=== PATIENT | female | born 1935 | race Caucasian/White ===

== ENCOUNTER 2016-10-18 08:21 | Inpatient (IN) | payer OTHER, MEDICARE ==
[~2016-10-18] VITALS: Ht 165.1 cm; Wt 53.0 kg
[2016-10-18] VITALS (33 sets, daily range): BP systolic 86–158; BP diastolic 35–100
--- NOTE | ~2016-10-18 | EKG ---
[place] [address] [facility] [place] [address] ELECTROCARDIOGRAM REPORT Name: KRISTINE PACK Room #: 243-P ADM IN M.R.#: [id number] Admission: 10/18/16 Attend Phys: Chaz Sharp MD Discharge: Date of : 37 Report #: [id number] THIS REPORT FOR: //name// [facility] ED Test Date: 2016-10-18 Test Time: 08:51:29 Pat Name: KRISTINE PACK Department: Room: [facility] Gender: F Gore Maker: SNEHAL : 1935 Requested By: Varun Hernández Order Number: [id number] MD: Kevin Lanza Measurements Intervals [place] Rate: 97 P: 55 TX: 164 QRS: 30 QRSD: 92 T: 69 QT: 365 QTc: 464 Interpretive Statements Sinus rhythm Poor septal R-wave progression Compared to ECG 11/01/2004 16:24:38 No significant change was found Electronically Signed On 10-19-2016 8:49:24 CDT by Kevin Lanza [email or web address] <ELECTRONICALLY SIGNED> By: Kevin Lanza MD, [facility] 10/19/16 0849 0 Kevin Lanza MD, [facility] /EPI
--- NOTE | ~2016-10-18 | EKG ---
[place] [address] [facility] [place] [address] ELECTROCARDIOGRAM REPORT Name: KRISTINE PACK Room #: 243- ADM IN M.R.#: [id number] Admission: 10/18/16 Attend Phys: Chaz Sharp MD Discharge: Date of : 37 Report #: [id number] THIS REPORT FOR: //name// [facility] Test Date: 2016-10-20 Test Time: 08:12:31 Pat Name: KRISTINE PACK Department: Room: 243 P Gender: F Window Repairer: RHONDA : 1935 Requested By: Kevin Lanza Order Number: [id number] MD: Martinez Nguyen Measurements Intervals [place] Rate: 66 P: 58 NV: 130 QRS: 32 QRSD: 92 T: 186 QT: 509 QTc: 534 Interpretive Statements Sinus rhythm Abnormal T, consider ischemia, diffuse leads Prolonged QT interval Compared to ECG 10/18/2016 08:51:29 T-wave abnormality now present Possible ischemia now present Prolonged QT interval now present Electronically Signed On 10-20-2016 12:45:52 CDT by Martinez Nguyen [email or web address] <ELECTRONICALLY SIGNED> By: Martinez Nguyen MD 10/20/16 1245 1 1 Martinez Nguyen MD /EPI
--- NOTE | ~2016-10-18 | EKG ---
[place] [address] [facility] [place] [address] ELECTROCARDIOGRAM REPORT Name: KRISTINE PACK Room #: 241-P ADM IN M.R.#: [id number] Admission: 10/18/16 Attend Phys: Chaz Sharp MD Discharge: Date of : 37 Report #: [id number] THIS REPORT FOR: //name// [facility] Test Date: 2016-10-23 Test Time: 06:49:28 Pat Name: KRISTINE PACK Department: Room: 241 P Gender: F Entertainment Reporter: nora : 1935 Requested By: Kevin Lanza Order Number: [id number] MD: Kevin Lanza Measurements Intervals [place] Rate: 59 P: 53 PA: 127 QRS: 0 QRSD: 88 T: 206 QT: 510 QTc: 506 Interpretive Statements Sinus rhythm Atrial premature complex T wave abnormality, consider ischemia Prolonged QT interval Compared to ECG 10/22/2016 10:36:10 No significant change was found Electronically Signed On 10-23-2016 8:33:59 CDT by Kevin Lanza [email or web address] <ELECTRONICALLY SIGNED> By: Kevin Lanza MD, [facility] 10/23/16 0833 0649 0649 Kevin Lanza MD, [facility] /EPI
--- NOTE | ~2016-10-18 | EKG ---
[place] [address] [facility] [place] [address] ELECTROCARDIOGRAM REPORT Name: KRISTINE PACK Room #: 243-P ADM IN M.R.#: [id number] Admission: 10/18/16 Attend Phys: Chaz Sharp MD Discharge: Date of : 37 Report #: [id number] THIS REPORT FOR: //name// [facility] ED Test Date: 2016-10-18 Test Time: 08:29:00 Pat Name: KRISTINE PACK Department: Room: [facility] Gender: F Manager Consumer Insights: SNEHAL : 1935 Requested By: Varun Hernández Order Number: [id number] MD: Kevin Lanza Measurements Intervals [place] Rate: 107 P: 81 AR: 163 QRS: 38 QRSD: 85 T: 56 QT: 325 QTc: 434 Interpretive Statements Sinus tachycardia Poor septal R-wave progression Compared to ECG 11/01/2004 16:24:38 No significant change was found Electronically Signed On 10-19-2016 8:48:46 CDT by Kevin Lanza [email or web address] <ELECTRONICALLY SIGNED> By: Kevin Lanza MD, [facility] 10/19/1648 8 8 Kevin Lanza MD, [facility] /EPI
--- NOTE | ~2016-10-18 | HC ---
[facility] [place] [address] CONSULTATION Name: KRISTINE PACK Room #: 213-P [facility] IN M.R.#: [id number] Admission: 10/18/16 Attend Phys: Chaz Sharp MD Discharge: 10/24/16 Date of : 37 Report #: [id number] THIS REPORT FOR: //name// CC: Chaz Sheikh DATE OF SERVICE: 10/23/2016 HISTORY OF PRESENT ILLNESS: The patient is an 81-year-old female who was undergoing some therapy at an outside facility, was ambulating and became obtunded. She was admitted to [facility]. There was a question of ST elevation. CT of the head was negative for hemorrhage and she was given TPA. Diagnosis at that time was consistent with acute encephalopathy, stroke versus hypoxia. She was noted to have hypercapnic respiratory failure. MRI of the head was negative. She underwent a cardiac echo which was consistent with takotsubo cardiomyopathy with cardiac junction. She had acute renal insufficiency versus chronic kidney disease with CHF. She initially did better, was starting to progress and then had a relapse with worsening with rapid response on 10/22/2016 requiring readmission back to the ICU. She was in the ICU for approximately 24 hours only and has now been transferred to the progressive care unit. I am seeing her in rehabilitation medicine consultation. PAST MEDICAL HISTORY: Includes chronic kidney disease stage 3, hypertension, end-stage renal disease, hyperlipidemia, thyroid atrophy, restless legs syndrome, and anxiety. HABITS: No known history of any alcohol or tobacco abuse. ALLERGIES: ERYTHROMYCIN, PENICILLIN, SERTRALINE, AND SULFA. SOCIAL HISTORY: She lives in her own independent home one level, used walker premorbidly. Just prior to her acute hospitalization, [facility] and was using a walker, improving. She notes she was needing to utilize the walker at times for some balance issues. As far as stress, she notes that she has had considerable stress in her life as was discussed. REVIEW OF SYSTEMS: Did not offer any current complaints of chest pain, shortness of breath, or abdominal discomfort. No focal extremity pain complaints. PHYSICAL EXAMINATION: GENERAL: An 81-year-old white female in no obvious distress. She is short statured and thin. She is alert. She is pleasant. VITAL SIGNS: Last recorded temperature 97.2, pulse 77, respirations 16, blood pressure 108/58. [address] [address] CONSULTATION Name: KRISTINE PACK Room #: 213-P DIS IN M.R.#: [id number] Admission: 10/18/16 Attend Phys: Chaz Sharp MD Discharge: 10/24/16 Date of : 36 Report #: [id number] HEENT: Appeared to be benign. NEUROLOGIC: Cranial nerves are grossly intact. Facies are symmetric. EXTREMITIES: She has functional range of motion of both upper extremities without obvious focal weakness. DTRs are trace to 1. In her lower extremities, there is no focal calf swelling, functional range of motion with strength grade 4-/5. She has been minimum assist with sit to supine and has ambulated minimum assist with a front-wheeled walker but that was before she was transferred back to the Intensive Care Unit. ASSESSMENT: An 81-year-old white female with the following problem list: 1. Medical complexity with generalized debilitation. 2. Non-ST elevation myocardial infarction with takotsubo cardiomyopathy. 3. Cardiogenic shock. 4. Acute hypoxic and hypercapnic respiratory failure, which has improved. 5. Acute encephalopathy and syncope due to arrhythmia, which has resolved. 6. Acute renal insufficiency superimposed on chronic kidney disease, which is improving. PLAN: Therapies are to complete their reevaluation after the readmission to the Intensive Care Unit. She may be a candidate for a short acute in-hospital inpatient rehabilitation stay pending on her functional deficits. She does have the multiple medical comorbidities with the multiple customer experience consultant involvement. We will be glad to follow along with you regarding her rehab therapy needs. <ELECTRONICALLY SIGNED> By: Stefano Wagner MD 10/25/16 1608 1623 0521 Stefano Wagner MD /nt
--- NOTE | ~2016-10-18 | HC ---
[facility] [place] [address] CONSULTATION Name: KRISTINE PACK Room #: 241-P ADM IN M.R.#: [id number] Admission: 10/18/16 Attend Phys: Chaz Sharp MD Discharge: Date of : 36 Report #: [id number] THIS REPORT FOR: //name// CC: Chaz Sheikh REASON FOR CONSULTATION: I was asked to evaluate concerning respiratory failure and suspected healthcare-associated pneumonia. HISTORY OF PRESENT ILLNESS: The patient is an 81-year-old who was at acute rehabilitation facility where she had development of generalized weakness and episode of loss of consciousness. She presented through the Emergency Room where she had ST elevation on her first electrocardiogram. Her oxygen saturation was low. There was concern regarding possible intracranial injury and TPA was administered. Subsequently, she has awoken and is fully responsive. She is intubated. Minimal tracheal secretions. On an FIO2 of 40%. Her initial ABG showed a lactic acidosis. Chest x-ray showed evidence of bilateral pulmonary infiltrates. Blood pressure has been stable. She is now on FIO2 of 40% and receiving normal saline drip at 100 mm an hour. The patient was alert and cooperative. She moved all extremities. No gross aspiration was identified. She has had loose stools. She reports no abdominal pain or dysuria. Now has indwelling Ochoa catheter. Urine output over the last 3-4 hours has picked up. ALLERGIES: PENICILLIN, SULFA, ERYTHROMYCIN, SERTRALINE. MEDICATIONS: As noted on her APR. Vancomycin, Levaquin and meropenem. PAST MEDICAL HISTORY: Chronic kidney disease, hypertension, iron deficiency anemia, hyperlipidemia, hypothyroid, restless leg syndrome, anxiety. FAMILY HISTORY: Noncontributory. SOCIAL HISTORY: Nonsmoker, no significant alcohol intake. REVIEW OF SYSTEMS: Negative other than what is noted above. PHYSICAL EXAMINATION: VITAL SIGNS: Afebrile and hemodynamically stable. The patient was alert and cooperative. She is on FIO2 of 40%. Minimal tracheal secretions. HEENT: Unremarkable. CHEST: Clear anteriorly. HEART: Regular was regular with a 2/6 systolic murmur heard at left sternal border. ABDOMEN: Soft, nontender, no hepatosplenomegaly or mass appreciated. EXTREMITIES: Unremarkable. No focal neurologic changes identified. [address] [address] CONSULTATION Name: KRISTINE PACK Room #: 241-P [facility] IN .R.#: [id number] Admission: 10/18/16 Attend Phys: Chaz Sharp MD Discharge: Date of : 37 Report #: [id number] LABORATORY STUDIES: Sodium 143, potassium 3.7, bicarbonate 27 up from 20 on admission. Creatinine 1.7. Liver function tests normal. Lactate 8, early this morning, troponin 4.3. BNP 3239. INR 1.0, hemoglobin 12, WBC 11.8, platelet count 352,000. MRSA screen pending. Differential was not performed. Procalcitonin less than 0.05. Urinalysis unremarkable. Last ABG at 10:00 this morning on FIO2 of 80% showed a pO2 of 127, pCO2 of 57, pH 7.2. Blood cultures are pending. Sputum culture pending. CT scan of the head, cerebral atrophy with no acute process. MRI scan of the head is pending. Chest x-ray, moderate right perihilar infiltrate, patchy moderate infiltrates aspect of left upper lobe and left lung base. IMPRESSION: An 81-year-old with syncopal episode , now with no focal neurologic changes. She is status post tissue plasminogen activator. She has bilateral pulmonary infiltrates, most notable on the left. Hemodynamics remained stable. Troponin has been elevated, noting some cardiac ischemia. Echocardiogram shows poor EF at 25-30% with akinesis of the septum, mid to distal anterior wall apex and inferior apex with mild to moderate mitral regurgitation. I am suspecting a component of this is related to congestive heart failure. Still cannot exclude aspiration healthcare-associated pneumonia. Although her procalcitonin was negative. I would recommend continuing antibiotic coverage for the next 24 hours and reevaluate with chest x-ray. We will reevaluate laboratory studies including CBC with differential. I have discussed the case with the nursing staff in attendance. <ELECTRONICALLY SIGNED> By: Phil Rod MD 10/22/16 1154 2107 0552 Phil Rod MD /nt
--- NOTE | ~2016-10-18 | CATHLAB ---
[facility] [place] [address] INVASIVE PROCEDURE REPORT Name: KRISTINE PACK Room #: 210-P [facility] IN ..#: [id number] Admission: 10/18/16 Attend Phys: Chaz Sharp, Discharge: Date of : 37 Date of Service: 10/22/16 0924 Report #: [id number] THIS REPORT FOR: //name// APPROVED REPORT Patient Details Patient Status: In-Patient Room #: The patient is a 81 year-old female Event Personnel Kevin Lanza Graphic Manager, Tanya Banegas Monitor, Sue Mckenzie Monitor, Susan Hoang RN RN, Stefano Ballesteros, Stefano Ballesteros, Gretel Oneal RTR Marker Delivery Procedures Performed Left Heart Cath w/or w/o Coronaries [id number] [facility] Indication Abnormal ECG Procedure Narrative The Right Groin^ was infiltrated with 1% Lidocaine subcutaneous anesthesia. A PINNACLE 6FR Sheath #[id number] sheath was inserted into the RFA^. Coronary angiography was performed using coronary diagnostic catheters. The right coronary system was accessed and visualized with a JR4 catheter. The left coronary system was accessed and visualized with a JL4 catheter. The left ventricle was accessed and visualized with a PIGTAIL catheter. Left ventricular/Aortic Valve gradient assessed via catheter pullback. Closure device was deployed with a 6 Fr MYNXGRIP 6/7F #[id number]. The patient tolerated the procedure well and there were no complications associated with the procedure. A hematoma occurred. Intraoperative Conscious Sedation Sedation start time: 8:08 Case end Time: 8:30 Fentanyl 25.0 mcg Versed 1.0 mg Fluoro Time: 3.00 minutes Dose: DAP 2651.00 cGycm2 315 mGy Contrast Type and Amount: Visipaque 145 ml Coronary Angiography The patient's coronary anatomy is right dominant. [facility] [place] [address] INVASIVE PROCEDURE REPORT Name: RAMONEKRISTINE Glendy Room #: 210-P [facility] IN ..#: [id number] Admission: 10/18/16 Attend Phys: Chaz Sharp, Discharge: Date of : 37 Date of Service: 10/22/16 0924 Report #: [id number] Diagnostic Cath Left Main Normal LAD Mild proximal 10% plaquing, otherwise normal throughout its course Diagonal 1 Single, normal diagonal branch Circumflex Angiographically normal OM1 Large, single trifurcating marginal branch Right Coronary Dominant Right coronary. Mild 20-30% mid vessel plaquing R PDA Normal RPLV Normal Left Ventriculography The left ventricle is normal in size with reduced contractility. The left ventricular ejection fraction is estimated to be 35%. Left ventricular wall motion abnormalities are present. There is 1+ mitral insufficiency. Apical ballooning, likely related to Takusubo cardiomyopathy. Anterior, apical, and inferoapical hypokinesis Hemodynamics The aortic pressure is 194/79 mmHg with a mean of 122 mmHg. The left ventricular pressure is 192/19 mmHg with a mean of mmHg. The left ventricular end diastolic pressure is 35 mmHg. There was no gradient across the aortic valve upon pullback. Pullback from the left ventricle to the aorta revealed no gradient across the aortic valve. Conclusion 1. Moderate left ventricular dysfunction with apical ballooning; anterior, apical, and inferoapical hypokinesis consistent with Takutubo cardiomyopathy EF 35% 2. Normal left main 3. Mild, scattered non-occlusive atherosclerotic coronary artery disease <ELECTRONICALLY SIGNED> By: Kevin Lanza MD, FACC 10/22/16923 3 3 Kevin Lanza MD, FACC /INF
--- NOTE | ~2016-10-18 | HC ---
[facility] [place] [address] CONSULTATION Name: KRISTINE PACK Room #: 213-P [facility] IN M.R.#: [id number] Admission: 10/18/16 Attend Phys: Chaz Sharp MD Discharge: 10/24/16 Date of : 37 Report #: [id number] THIS REPORT FOR: //name// CC: Chaz Gonzales Gloriacrystal DATE OF SERVICE: 10/18/2016 REFERRING PHYSICIAN: Varun Hernández MD ATTENDING PHYSICIAN: Chaz Sharp MD REASON FOR CONSULTATION: Respiratory failure. CHIEF COMPLAINT: Altered mental status. HISTORY OF PRESENT ILLNESS: Our group was asked to see the patient in consultation while hospitalized in [facility], seen in the Emergency Department earlier this afternoon and again in ICU this afternoon or early evening. An 81-year-old woman who is awake and alert at this time, able to follow commands; however, presented from a rehabilitation facility with altered mental status. Initially presenting in the Emergency Department, was very confused, apparently had no ability to speak well, there was garbled speech. There was some concern about anisocoria and possibly ST elevation MN; however, EKG findings were not consistent on further review with an ST elevation MN. CT scan of the head was negative and the patient was subsequently intubated due to respiratory difficulties and rales that were thought possibly due to aspiration. The patient was intubated and given a paralytic. Concern for garbled speech and anisocoria thought to have possible CVA. She was given TPN. Neurology consultation. The patient is now awake, following commands in ICU with some frothy pink secretions being aspirated. ALLERGIES: PENICILLIN, SULFA, ERYTHROMYCIN. PAST MEDICAL HISTORY: 1. General debilitation. 2. Hypertension. 3. Chronic renal insufficiency, level 3. 4. Iron deficiency anemia. 5. Hyperlipidemia. 6. Hypothyroidism. 7. Anxiety. SOCIAL HISTORY: Unobtainable due to current status. FAMILY HISTORY: Unobtainable due to current status. [facility] [address] [place] [address] CONSULTATION Name: KRISTINE PACK Room #: [address] [place] [address] IN M.R.#: [id number] Admission: 10/18/16 Attend Phys: Chaz Sharp MD Discharge: 10/24/16 Date of : 37 Report #: [id number] REVIEW OF SYSTEMS: Unobtainable due to current status. PHYSICAL EXAMINATION: VITAL SIGNS: Afebrile, pulse 80s, respiratory rate is 30, blood pressure 101/35. GENERAL: This is a thin, diminutive elderly woman, awake on the ventilator. ENT: 7.[address]. NECK: Supple, no lymphadenopathy. LUNGS: Coarse rhonchi heard throughout. CARDIOVASCULAR: Heart regular. No murmurs or gallops. ABDOMEN: Soft, nontender, no masses. EXTREMITIES: Warm with 2+ pulses, no edema. NEUROLOGIC: The patient was given all extremities, following commands. LABORATORY DATA: Echocardiogram reveals findings of cardiomyopathy with ejection fraction 25%. Pulmonary artery pressure of 40. Chest x-ray reveals diffuse pulmonary infiltrates; left greater than right, consistent with healthcare-associated pneumonia and/or pulmonary edema. White blood cell count 12,000, hemoglobin 12, hematocrit 38, platelet count 352. Sodium 143, potassium 3.7, chloride 106, bicarbonate 27, BUN 38, creatinine 1.7, glucose 95. Initial blood gas on assist control, tidal volume of 400, rate at 20, PEEP of 5, FiO2 80% revealed pH 7.22, pCO2 of , pO2 128, bicarbonate 23. IMPRESSION: 1. Acute hypoxemic respiratory failure, suspect pulmonary edema and/or underlying healthcare-associated pneumonia. 2. Altered mental status, likely secondary to above with likely cerebrovascular accident. 3. Chronic renal insufficiency. 4. Cardiomyopathy, unclear chronicity. 5. Elevated troponin, possibly non-ST elevation myocardial infarction. 6. General debilitation. SUGGESTIONS: 1. Continue with broad-spectrum antimicrobials for possible healthcare-associated pneumonia. 2. Await cultures of sputum and blood. 3. Nasal swab for respiratory viral panel. 4. Bronchodilators. 5. Check lower extremity venous Dopplers. 6. Wean mechanical ventilatory support when the patient's respiratory status improves. 7. Additional recommendations to follow. Discussed with nursing and Dr. Hernández [place] [address] CONSULTATION Name: KRISTINE PACK Room #: 213-P DIS IN M.R.#: [id number] Admission: 10/18/16 Attend Phys: Chaz Sharp MD Discharge: 10/24/16 Date of : 37 Report #: [id number] Total critical care time was 45 minutes, not including any procedures. <ELECTRONICALLY SIGNED> By: Nestor Franklin MD 10/25/16 1304 1931 0443 Nestor Franklin MD /nt
--- NOTE | ~2016-10-18 | 2DMMODE ---
[facility] [address] [place] [address] 2 D/M-MODE ECHOCARDIOGRAM Name: KRISTINE PACK Room #: 170-6 ADM IN ..#: [id number] Admission: 10/18/16 Attend Phys: Chaz Sharp, Discharge: Date of : 37 Date of Service: 10/18/16 1147 Report #: [id number] THIS REPORT FOR: //name// APPROVED REPORT Study performed: 10/18/2016 10:53:34 EXAM: Comprehensive 2D, Doppler, and color-flow Echocardiogram Patient Location: ER Room #: 6 Status: stat BSA: 1.64 HR: 75 bpm BP: 161/92 mmHg Other Information Study Quality: Good Indications Congestive Heart Failure Elivated Troponin 2D Dimensions RVDd: 29.95 mm LVEF(%): 35.12 (>50%) IVSd: 10.55 (7-11mm) LVOT Diam: 17.90 (18-24mm) LVDd: 47.45 mm PWd: 11.49 (7-11mm) Ascending Ao: 32.18 (22-36mm) LVDs: 39.49 (25-40mm) Aortic Root: 29.22 mm IVC: 19.00 mm Correa's LVEF: 35.12 % Volumes Left Atrial Volume (Systole) Single Plane 4CH: 83.60 mL Single Plane 2CH: 75.04 mL LA ESV Index: 53.00 mL/m2 Aortic Valve AoV Peak Williams.: 0.90 m/s AO Peak Gr.: 3.21 mmHg LVOT Max P.28 mmHg LVOT Max V: 0.90 m/s ARMANDO Vmax: 2.54 cm2 Mitral Valve E/A Ratio: 0.6 MV Decel. Time: 240.50 ms [facility] [place] [address] 2 D/M-MODE ECHOCARDIOGRAM Name: KRISTINE PACK Room #: 170-6 ADM IN M.R.#: [id number] Admission: 10/18/16 Attend Phys: Chaz Sharp, Discharge: Date of : 37 Date of Service: 10/18/16 1147 Report #: [id number] MV E Max Williams.: 0.79 m/s MV A Williams.: 1.28 m/s MV PHT: 69.75 ms IVRT: 161.48 ms Pulmonary Valve PV Peak Williams.: 0.93 m/s PV Peak Gr.: 3.44 mmHg Pulmonary Vein P Vein S: 0.39 m/s P Vein A: 0.26 m/s P Vein D: 0.28 m/s P Vein A Dur.: 92.3 msec P Vein S/D Ratio: 1.39 Tricuspid Valve TR Peak Williams.: 2.92 m/s TR Peak Gr.: 34.01 mmHg PA Pressure: 44.00 mmHg Left Ventricle The left ventricle is normal size. Akinesis of septum, mid to distal anterior wall, apex, and inferoapex There is normal left ventricular wall thickness. Left ventricular ejection fraction is severely decreased. LVEF is 25-30%. Grade I - abnormal relaxation pattern. Right Ventricle The right ventricle is normal size. The right ventricular systolic function is normal. Atria Left atrium is dilated. The right atrium size is normal. Aortic Valve Aortic valve is calcified. Trace to mild aortic regurgitation. There is no aortic valvular stenosis. Mitral Valve Heavy mitral annular calcification. Mild to moderate mitral regurgitation. No evidence of mitral valve stenosis. Tricuspid Valve The tricuspid valve is normal in structure. There is mild tricuspid regurgitation. The right atrial pressure is estimated at 10 mmHg. There is moderate pulmonary hypertension. Pulmonic Valve [facility] [address] [place] [address] 2 D/M-MODE ECHOCARDIOGRAM Name: KRISTINE PACK Room #: 170-6 [facility] IN [facility]#: [id number] Admission: 10/18/16 Attend Phys: Chaz Sharp, Discharge: Date of : 37 Date of Service: 10/18/16 1147 Report #: [id number] The pulmonary valve is normal in structure. Trace pulmonic regurgitation. Great Vessels The aortic root is normal in size. IVC is normal in size and collapses <50% with inspiration. Pericardium No pericardial effusion. <Conclusion> Left ventricular ejection fraction is severely decreased. LVEF is 25-30%. Akinesis of septum, mid to distal anterior wall, apex, and inferoapex Grade I - abnormal relaxation pattern. Left atrium is dilated. Aortic valve is calcified, no stenosis. Trace to mild aortic regurgitation. Heavy mitral annular calcification. Mild to moderate mitral regurgitation. Pulmonary artery pressure of 40mmHg No pericardial effusion. <ELECTRONICALLY SIGNED> By: Kevin Lanza MD, FACC 10/18/16 1147 1147 1147 Kevin Lanza MD, FACC /INF
--- NOTE | ~2016-10-18 | EKG ---
[place] [address] [facility] [email or web address] [address] ELECTROCARDIOGRAM REPORT Name: KRISTINE PACK Room #: 241-P ADM IN M.R.#: [id number] Admission: 10/18/16 Attend Phys: Chaz Sharp MD Discharge: Date of : 37 Report #: [id number] THIS REPORT FOR: //name// [facility] Test Date: 2016-10-22 Test Time: 10:36:10 Pat Name: KRISTINE PACK Department: Room: 241 Gender: F Crm Technical Lead: nora : 1935 Requested By: Chaz Sharp Order Number: [id number] MD: Kevin Lanza Measurements Intervals [place] Rate: 91 P: 63 NM: 119 QRS: 36 QRSD: 89 T: 209 QT: 415 QTc: 511 Interpretive Statements Sinus rhythm Atrial premature complex Borderline short NM interval Probable left atrial enlargement Abnormal T, consider ischemia, diffuse leads Prolonged QT interval Baseline wander in lead(s) V2 Compared to ECG 10/20/2016 08:12:31 Atrial premature complex(es) now present Electronically Signed On 10-22-2016 16:35:37 CDT by Kevin Lanza [email or web address] <ELECTRONICALLY SIGNED> By: Kevin Lanza MD, FAC 10/22/16 1635 1036 1036 Kevin Lanza MD, FAC /EPI
[2016-10-18 08:44] LABS: HEMATOCRIT 37.5 % (37.0-47.0); MCH 30.9 pg (26.0-34.0); MCV 96.6 fL (80.0-100.0); RBC 3.88 mil/uL (4.20-5.00); RDW 15.3 % (10.5-14.5); WBC 11.8 thou/uL (4.0-11.0)
[2016-10-18 08:49] LABS: CALCIUM 9.2 mg/dL (8.5-10.1); CREATININE 1.8 mg/dL (0.6-1.0)
[2016-10-18] MEDS ORDERED: ADALAT CC30 MG PO (08:56)
[2016-10-18 08:58] LABS: APTT 28.3 Seconds (24.5-32.8); PROTIME 10.7 Seconds (9.3-11.4); TROPONIN-I 0.15 ng/mL (<0.04-0.07)
[2016-10-18] MEDS ORDERED: ALIGN4 MG PO (08:58)
[2016-10-18] MEDS ORDERED: ASPIR 8181 M1 PO (08:59)
[2016-10-18] MEDS ORDERED: CARVEDILOL12.5 MG PO (09:00)
[2016-10-18] MEDS ORDERED: HYDROXYZINE HCL25 M1 PO ×2 (09:13→09:14)
[2016-10-18] MEDS ORDERED: IBUPROFEN 800800 M1 PO (09:15)
[2016-10-18] MEDS ORDERED: KLONOPIN0.5 MG PO (09:16)
[2016-10-18] MEDS ORDERED: LASIX 20 MG TAB20 MG PO (09:18)
[2016-10-18] MEDS ORDERED: LIPITOR20 MG PO (09:20)
[2016-10-18] MEDS ORDERED: SYNTHROID88 MCG PO (09:20)
[2016-10-18] MEDS ORDERED: COZAAR 25 MG TA25 M1 PO (09:21)
[2016-10-18] MEDS ORDERED: MAGNESIUM100 MG PO (09:22)
[2016-10-18] MEDS ORDERED: NUVIGIL150 MG PO (09:23)
[2016-10-18] MEDS ORDERED: MELATONIN5 M1 PO (09:23)
[2016-10-18] MEDS ORDERED: PAXIL20 MG PO (09:31)
[2016-10-18] MEDS ORDERED: POTASSIUM20 PO (09:32)
[2016-10-18] MEDS ORDERED: PROTONIX40 M1 PO (09:32)
[2016-10-18] MEDS ORDERED: PYRIDOXINE HCL50 MG PO (09:33)
[2016-10-18] MEDS ORDERED: REQUIP5 MG PO (09:34)
[2016-10-18 09:35] LABS: URINE BILIRUBIN NEGATIVE (Negative); URINE BLOOD TRACE (Negative); URINE COLOR YELLOW; URINE GLUCOSE-RANDOM* NEGATIVE (Negative); URINE KETONES NEGATIVE (Negative); URINE LEUKOCYTES-REFLEX NEGATIVE (Negative); URINE PROTEIN (DIPSTICK) 1+ (Negative); URINE SPECIFIC GRAVITY 1.025 (1.003-1.035); URINE UROBILINOGEN 0.2 E.U./dl (0.2-1.0)
[2016-10-18] MEDS ORDERED: TYLENOL325 MG PO (09:36)
[2016-10-18] MEDS ORDERED: VITAMIN B-12500 MCG PO (09:37)
[2016-10-18] MEDS ORDERED: ZANTAC300 MG PO (09:38)
[2016-10-18] MEDS ORDERED: VITAMIN D2000 UNIT PO (09:38)
[2016-10-18 09:41] LABS: ABG SAMPLE TYPE ARTERIAL; HCO3 20.4 mmol/L (22.0-26.0); LACTATE 3.32 mmol/L (0.5-2.0); PCO2 66.6 mmHg (35.0-45.0); PO2 154.9 mmHg (80.0-100.0); STICK SITE R.RADIAL; pH 7.103 (7.360-7.450); sO2 98.2 % (92.0-98.0); tCO2 22.4 mmol/L (24.0-30.0)
[2016-10-18 09:42] LABS: TIDAL VOLUME 400 ml
[2016-10-18 09:48] LABS: CASTS None Seen /LPF (None Seen); CRYSTALS None Seen /LPF (None Seen); SQUAMOUS None Seen /LPF (0-3); URINE RBC 0-2 Rare /HPF (0-2); URINE WBC-REFLEX None Seen /HPF (0-5)
[2016-10-18 10:18] LABS: ALBUMIN 3.2 g/dL (3.4-5.0); ALKALINE PHOSPHATASE 72 U/L (46-116); DIRECT BILIRUBIN < 0.1 mg/dL (<0.1-0.3); SGOT 54 U/L (15-37); SGPT 35 U/L (30-65); TOTAL BILIRUBIN 0.3 mg/dL (<0.1-1.0); TOTAL PROTEIN 7.2 g/dL (6.4-8.2)
[2016-10-18 10:45] LABS: ABG SAMPLE TYPE ARTERIAL; BE(vivo) -5.4 mmol/L (-2 to +3); HCO3 22.9 mmol/L (22.0-26.0); LACTATE 2.18 mmol/L (0.5-2.0); O2(CT) 17.4 mL/dL (15.0-23.0); O2Hb 96.9 % (92.0-98.0); PCO2 57.6 mmHg (35.0-45.0); PO2 127.6 mmHg (80.0-100.0); STICK SITE R.RADIAL; TIDAL VOLUME 400 ml; pH 7.218 (7.360-7.450); sO2 97.9 % (92.0-98.0); tCO2 24.7 mmol/L (24.0-30.0)
[2016-10-18 18:44] LABS: CALCIUM 8.7 mg/dL (8.5-10.1); CREATININE 1.7 mg/dL (0.6-1.0)
[2016-10-18 18:53] LABS: POTASSIUM 3.7 mmol/L (3.5-5.1); TROPONIN-I 4.38 ng/mL (<0.04-0.07)
[2016-10-18 22:36] LABS: CALCIUM 8.2 mg/dL (8.5-10.1); CREATININE 1.7 mg/dL (0.6-1.0)
[2016-10-18 22:43] LABS: POTASSIUM 2.9 mmol/L (3.5-5.1)
[2016-10-19] VITALS (25 sets, daily range): BP systolic 93–179; BP diastolic 40–158
[2016-10-19 00:36] LABS: MAGNESIUM 1.6 mg/dL (1.8-2.4)
[2016-10-19 05:04] LABS: HEMATOCRIT 27.8 % (37.0-47.0); MCH 30.5 pg (26.0-34.0); MCHC 33.4 g/dL (28.0-37.0); RBC 3.04 mil/uL (4.20-5.00); RDW 14.1 % (10.5-14.5); WBC 13.8 thou/uL (4.0-11.0)
[2016-10-19 05:11] LABS: HEMOGLOBIN 9.3 gm/dL (12.0-15.0); MANUAL DIFF YES; MCV 91.6 fL (80.0-100.0); PLATELET COUNT 206 thou/uL (150-400)
[2016-10-19 05:12] LABS: ABG SAMPLE TYPE ARTERIAL; BE(vivo) -0.5 mmol/L (-2 to +3); HCO3 24.1 mmol/L (22.0-26.0); LACTATE 1.33 mmol/L (0.5-2.0); O2(CT) 14.1 mL/dL (15.0-23.0); O2Hb 97.1 % (92.0-98.0); PCO2 39.4 mmHg (35.0-45.0); PO2 133.8 mmHg (80.0-100.0); pH 7.405 (7.360-7.450); sO2 98.7 % (92.0-98.0); tCO2 25.3 mmol/L (24.0-30.0)
[2016-10-19 05:13] LABS: ABG COMMENT A/C RATE 14; STICK SITE R.RADIAL; TIDAL VOLUME 400 ml
[2016-10-19 05:23] LABS: CALCIUM 8.1 mg/dL (8.5-10.1); CREATININE 1.6 mg/dL (0.6-1.0); MAGNESIUM 2.1 mg/dL (1.8-2.4); POTASSIUM 3.5 mmol/L (3.5-5.1)
[2016-10-19 07:54] LABS: ABSOLUTE NEUTROPHILS 12.6 thou/uL (1.4-8.2); ANISOCYTOSIS SLIGHT; METAMYELOCYTES 1 %; TOTAL CELL COUNT 100
[2016-10-19 09:11] LABS: ABG COMMENT CPAP X 1 HR; ABG SAMPLE TYPE ARTERIAL; BE(vivo) -2.5 mmol/L (-2 to +3); LACTATE 1.14 mmol/L (0.5-2.0); O2(CT) 13.8 mL/dL (15.0-23.0); O2Hb 96.6 % (92.0-98.0); PCO2 36.6 mmHg (35.0-45.0); PO2 119.5 mmHg (80.0-100.0); Pressure Support 8 cm H20; STICK SITE R.RADIAL; pH 7.396 (7.360-7.450); sO2 98.3 % (92.0-98.0); tCO2 23.1 mmol/L (24.0-30.0)
[2016-10-20] VITALS (19 sets, daily range): BP systolic 118–220; BP diastolic 59–182
[2016-10-20 11:43] LABS: HEMATOCRIT 25.4 % (37.0-47.0); HEMOGLOBIN 8.4 gm/dL (12.0-15.0); MCH 30.7 pg (26.0-34.0); MCHC 33.2 g/dL (28.0-37.0); MCV 92.6 fL (80.0-100.0); PLATELET COUNT 173 thou/uL (150-400); RBC 2.74 mil/uL (4.20-5.00); RDW 14.2 % (10.5-14.5); WBC 10.1 thou/uL (4.0-11.0)
[2016-10-20 11:45] LABS: MANUAL DIFF YES
[2016-10-20 11:47] LABS: CALCIUM 8.6 mg/dL (8.5-10.1); CREATININE 1.2 mg/dL (0.6-1.0); MAGNESIUM 1.9 mg/dL (1.8-2.4); POTASSIUM 3.6 mmol/L (3.5-5.1)
[2016-10-20 12:18] LABS: ABSOLUTE NEUTROPHILS 8.6 thou/uL (1.4-8.2); ANISOCYTOSIS 1+; POLYCHROMASIA OCCASIONAL; TOTAL CELL COUNT 100
[2016-10-21 00:45] VITALS: BP 151/67
[2016-10-21 04:17] LABS: HEMATOCRIT 24.4 % (37.0-47.0); HEMOGLOBIN 8.3 gm/dL (12.0-15.0); MCHC 34.1 g/dL (28.0-37.0); MCV 90.9 fL (80.0-100.0); PLATELET COUNT 186 thou/uL (150-400); RBC 2.68 mil/uL (4.20-5.00); WBC 9.3 thou/uL (4.0-11.0)
[2016-10-21 04:30] VITALS: BP 163/56
[2016-10-21 04:30] LABS: CALCIUM 8.3 mg/dL (8.5-10.1); CREATININE 1.1 mg/dL (0.6-1.0); MAGNESIUM 1.8 mg/dL (1.8-2.4); POTASSIUM 3.8 mmol/L (3.5-5.1)
[2016-10-21 05:58] LABS: MANUAL DIFF YES
[2016-10-21 07:50] VITALS: BP 161/78
[2016-10-21 09:45] LABS: ABSOLUTE NEUTROPHILS 8.4 thou/uL (1.4-8.2); TOTAL CELL COUNT 100
[2016-10-21 09:52] LABS: ANISOCYTOSIS 1+; POLYCHROMASIA OCCASIONAL
[2016-10-21 10:51] VITALS: BP 169/85
[2016-10-21 16:39] VITALS: BP 176/80
[2016-10-21 20:02] VITALS: BP 162/81
[2016-10-22] VITALS (22 sets, daily range): BP systolic 87–216; BP diastolic 42–94
[2016-10-22 04:49] LABS: HEMATOCRIT 25.6 % (37.0-47.0); HEMOGLOBIN 8.7 gm/dL (12.0-15.0); MCH 30.7 pg (26.0-34.0); MCHC 33.7 g/dL (28.0-37.0); MCV 90.9 fL (80.0-100.0); PLATELET COUNT 213 thou/uL (150-400); RBC 2.82 mil/uL (4.20-5.00); RDW 14.3 % (10.5-14.5); WBC 8.6 thou/uL (4.0-11.0)
[2016-10-22 04:59] LABS: MANUAL DIFF YES
[2016-10-22 05:07] LABS: CALCIUM 8.6 mg/dL (8.5-10.1); MAGNESIUM 1.8 mg/dL (1.8-2.4); POTASSIUM 3.6 mmol/L (3.5-5.1)
[2016-10-22 08:34] LABS: ABSOLUTE NEUTROPHILS 7.5 thou/uL (1.4-8.2); TOTAL CELL COUNT 100
[2016-10-22 08:35] LABS: POIKILOCYTOSIS SLIGHT
[2016-10-22 10:31] LABS: ABG SAMPLE TYPE ARTERIAL; HCO3 19.8 mmol/L (22.0-26.0); LACTATE 4.42 mmol/L (0.5-2.0); O2(CT) 12.9 mL/dL (15.0-23.0); O2Hb 77.8 % (92.0-98.0); PCO2 50.4 mmHg (35.0-45.0); PO2 51.9 mmHg (80.0-100.0); STICK SITE R.RADIAL; pH 7.212 (7.360-7.450); sO2 79.1 % (92.0-98.0); tCO2 21.3 mmol/L (24.0-30.0)
[2016-10-22 11:49] LABS: BE(vivo) -3.5 mmol/L (-2 to +3); LACTATE 2.08 mmol/L (0.5-2.0); O2(CT) 16.5 mL/dL (15.0-23.0); O2Hb 98.1 % (92.0-98.0); PCO2 35.5 mmHg (35.0-45.0); PO2 375.1 mmHg (80.0-100.0); pH 7.389 (7.360-7.450); sO2 99.8 % (92.0-98.0)
[2016-10-22 11:50] LABS: ABG SAMPLE TYPE ARTERIAL; STICK SITE R.BRACHIAL
[2016-10-22 11:51] LABS: Pressure Support 10 cm H20; VDS BIPAP SPONT TIMED cc
[2016-10-22 12:12] LABS: HEMATOCRIT 29.8 % (37.0-47.0); MCH 30.5 pg (26.0-34.0); MCHC 33.4 g/dL (28.0-37.0); MCV 91.3 fL (80.0-100.0); RBC 3.27 mil/uL (4.20-5.00); RDW 14.1 % (10.5-14.5)
[2016-10-22 12:20] LABS: CALCIUM 8.5 mg/dL (8.5-10.1); CREATININE 1.1 mg/dL (0.6-1.0); POTASSIUM 3.4 mmol/L (3.5-5.1)
[2016-10-22 12:25] LABS: INR 1.1
[2016-10-22 12:30] LABS: ALBUMIN 2.6 g/dL (3.4-5.0); TOTAL BILIRUBIN 0.5 mg/dL (<0.1-1.0); TROPONIN-I 0.51 ng/mL (<0.04-0.07)
[2016-10-23] VITALS (27 sets, daily range): BP systolic 92–153; BP diastolic 46–105
[2016-10-23 01:11] LABS: INFLUENZA B Negative (Negative); METAPNEUMOVIRUS Negative (Negative)
[2016-10-23 05:41] LABS: ABSOLUTE NEUTROPHILS 6.1 thou/uL (1.4-8.2); BASOPHILS 0.6 % (0.0-2.0); EOSINOPHILS 2.4 % (0.0-3.0); HEMATOCRIT 27.1 % (37.0-47.0); HEMOGLOBIN 9.1 gm/dL (12.0-15.0); LYMPHOCYTES 12.5 % (24.0-44.0); MCH 30.2 pg (26.0-34.0); MCHC 33.5 g/dL (28.0-37.0); MCV 90.2 fL (80.0-100.0); MONOCYTES 10.6 % (1.0-8.0); PLATELET COUNT 215 thou/uL (150-400); POLYS 73.9 % (36.0-66.0); RBC 3.01 mil/uL (4.20-5.00); RDW 13.7 % (10.5-14.5); WBC 8.2 thou/uL (4.0-11.0)
[2016-10-23 05:43] LABS: MANUAL DIFF NO
[2016-10-23 06:05] LABS: CALCIUM 8.2 mg/dL (8.5-10.1); CREATININE 1.2 mg/dL (0.6-1.0); MAGNESIUM 1.5 mg/dL (1.8-2.4)
[2016-10-23 06:14] LABS: POTASSIUM 2.9 mmol/L (3.5-5.1)
[2016-10-23 13:53] LABS: MAGNESIUM 1.5 mg/dL (1.8-2.4); POTASSIUM 3.9 mmol/L (3.5-5.1)
[2016-10-24 00:29] VITALS: BP 143/82
[2016-10-24 04:06] VITALS: BP 151/62
[2016-10-24 05:30] LABS: HEMATOCRIT 28.1 % (37.0-47.0); HEMOGLOBIN 9.5 gm/dL (12.0-15.0); MCH 30.5 pg (26.0-34.0); MCHC 33.8 g/dL (28.0-37.0); MCV 90.2 fL (80.0-100.0); RBC 3.12 mil/uL (4.20-5.00); WBC 10.9 thou/uL (4.0-11.0)
[2016-10-24 05:37] LABS: CALCIUM 8.5 mg/dL (8.5-10.1); CREATININE 1.4 mg/dL (0.6-1.0); POTASSIUM 4.2 mmol/L (3.5-5.1)
[2016-10-24 08:15] VITALS: BP 147/67
[2016-10-24 11:30] VITALS: BP 129/69
[2016-10-24] MEDS ORDERED: LEVAQUIN 500 M500 M6 PO (12:00)
[2016-10-24] MEDS ORDERED: DUONEB 2.5-0.5 M3 ML INH (12:01)
[2016-10-24] MEDS ORDERED: COZAAR 50 MG TA50 M2 PO (12:02)
[2016-10-24] MEDS ORDERED: TORSEMIDE20 MG PO (12:03)
[2016-10-24 12:25] VITALS: BP 129/69
== END 2016-10-24 14:54 | DRG 208 ==
LOC: ER 08:21 → ICU 10:21 → EROBS 10:21 → ICU 14:02 → 2N 10-20 13:49 → ICU 10-22 11:16 → 2N 10-23 14:10
PROVIDERS: Emergency Medicine; Hospitalist; Internal Medicine; Internal Medicine Pulmonary Disease; Specialist
PROC: 5A1935Z Respiratory Ventilation, Less than 24 Consecutive Hours (ICD-10-PCS; principal; 2016-10-18)
PROC: 0BH17EZ Insertion of Endotracheal Airway into Trachea, Via Natural or Artificial Opening (ICD-10-PCS; principal; 2016-10-18)
PROC: 3E03317 Introduction of Other Thrombolytic into Peripheral Vein, Percutaneous Approach (ICD-10-PCS; 2016-10-18)
PROC: 02H633Z Insertion of Infusion Device into Right Atrium, Percutaneous Approach (ICD-10-PCS; 2016-10-18)
PROC: 5A09357 Assistance with Respiratory Ventilation, Less than 24 Consecutive Hours, Continuous Positive Airway Pressure (ICD-10-PCS; 2016-10-22)
PROC: B2111ZZ Fluoroscopy of Multiple Coronary Arteries using Low Osmolar Contrast (ICD-10-PCS; 2016-10-22)
PROC: B2151ZZ Fluoroscopy of Left Heart using Low Osmolar Contrast (ICD-10-PCS; 2016-10-22)
PROC: 4A023N7 Measurement of Cardiac Sampling and Pressure, Left Heart, Percutaneous Approach (ICD-10-PCS; 2016-10-22)
DX: J96.01 Acute respiratory failure with hypoxia (principal); I21.4 Non-ST elevation (NSTEMI) myocardial infarction; G93.40 Encephalopathy, unspecified; J18.9 Pneumonia, unspecified organism; R57.0 Cardiogenic shock; I50.41 Acute combined systolic (congestive) and diastolic (congestive) heart failure; I51.81 Takotsubo syndrome; N17.9 Acute kidney failure, unspecified; E87.2 Acidosis; E87.0 Hyperosmolality and hypernatremia; I13.0 Hypertensive heart and chronic kidney disease with heart failure and stage 1 through stage 4 chronic kidney disease, or unspecified chronic kidney disease; Z66 Do not resuscitate; J96.02 Acute respiratory failure with hypercapnia; N18.3 Chronic kidney disease, stage 3 (moderate); E78.5 Hyperlipidemia, unspecified; E03.9 Hypothyroidism, unspecified; F41.9 Anxiety disorder, unspecified; G25.81 Restless legs syndrome; S30.1XXA Contusion of abdominal wall, initial encounter; X58.XXXA Exposure to other specified factors, initial encounter; I49.9 Cardiac arrhythmia, unspecified; I25.10 Atherosclerotic heart disease of native coronary artery without angina pectoris; Z79.899 Other long term (current) drug therapy; Z88.1 Allergy status to other antibiotic agents; Z88.0 Allergy status to penicillin; Z88.2 Allergy status to sulfonamides; Z88.8 Allergy status to other drugs, medicaments and biological substances; Y93.89 Activity, other specified; Y92.89 Other specified places as the place of occurrence of the external cause; Y99.8 Other external cause status
CPT/HCPCS: 10078; 10081

== ENCOUNTER 2016-10-24 12:12 | Inpatient (IN) | payer OTHER, MEDICARE ==
[~2016-10-24] VITALS: Ht 152.4 cm; Wt 51.3 kg
--- NOTE | ~2016-10-24 | HC ---
[facility] [place] [address] CONSULTATION Name: KRISTINE PACK Room #: 515-P ADM IN M.R.#: [id number] Admission: 10/24/16 Attend Phys: Stefano Wagner MD Discharge: Date of : 37 Report #: [id number] THIS REPORT FOR: //name// CC: Stefano Sheikh DATE OF SERVICE: 10/29/2016 ATTENDING PHYSICIAN: Stefano Wagner M.D. PARTS INTERPRETER: Gamaliel Demarco, PhD CLINICAL PRESENTATION: The patient is an 81-year-old female admitted to [facility] rehabilitation unit for a comprehensive inpatient rehabilitation program to improve functional mobility, activities of daily living and self-care and mental status secondary to medical complexity and general debility. She carries an assessment that also includes an encephalopathy with an initial syncope due to arrhythmia, non-ST elevation myocardial infarction, Takotsubo cardiomyopathy, cardiogenic shock, acute renal insufficiency superimposed on chronic kidney disease. A complete description of her medical condition and history along with medications can be found in her medical record. Neuropsychological consultation was requested to provide assistance in the assessment of cognitive and emotional status and to provide recommendations and services. Prior to this most recent medical event, she reports living at a rehabilitation center and a [facility] home. She was in rehabilitation when she noticed a generalized weakness. She became unconscious and obtunded. She was then brought in through the Emergency Room and diagnosed with healthcare-associated pneumonia, pulmonary edema, respiratory failure with hypoxia and hypercapnia, syncope and collapse. The patient has never and has no children. 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 She had 1 sister and 1 brother that are both . TECHNIQUES UTILIZED: Clinical interview, review of medical records, staff consultation and behavioral observation, mini mental status exam 2 standard version, clock drawing and calibrated ideational fluency assessment (letter and category). EXAMINATION FINDINGS: The patient was alert and cooperative with the assessment. She describes an amnesia surrounding her initial hospitalization. There is no evidence of thought disorder. She does not describe auditory or visual hallucinations. Subjective anxiety was reported in regard to uncertainty about a cervical procedure. She does not report subjective depression. The patient also does not indicate difficulty with sleep or appetite. Memory and word finding are attributed to normal aging. As indicated, the patient was [address] [address] CONSULTATION Name: KRISTINE PACK Room #: 515-P [facility] IN .R.#: [id number] Admission: 10/24/16 Attend Phys: Stefano Wagner MD Discharge: Date of : 37 Report #: [id number] living alone in her own home prior to her mcfp/rehabilitation stay and hospitalization. Her performance on the MMSE 2 brief version was within normal limits with a raw score of 14 of 16. She was 3/3 for initial registration, 5/5 for orientation to time and place. She was 1/3 correct for immediate recall of 3 items after a brief time delay and distraction. Performance on the MMSE 2 standard version was in the mild range of impairment with a raw score of 24 and T score of 36. She was 2/3 for serial sevens, 2/2 for naming, 1/1 for repetition, 3/3 for auditory comprehension. She was able to read and follow a single command and write a sentence. The patient had difficulty with copying a simple geometric design. Clock drawing was within normal limits but required increased time. Category fluency is within normal limits with a raw score of 42 and a T score of 63. Total fluency is average with a raw score of 80 and a T score of 38. The patient appears to present with subtle to mild impairment with sustained concentration and divided attention and immediate recall. DIAGNOSTIC IMPRESSION: Adjustment disorder with anxious mood. Mild neurocognitive disorder, unspecified, without behavior disorder. RECOMMENDATIONS: The patient is likely to be presenting with subtle to mild decrease in cognition with difficulty primarily in attention/concentration and immediate recall. Increased anxiety in regard to her well being will benefit from the use of relaxation techniques and supportive counseling. Reassurance in regard to cognition will also be helpful in diminishing continued preoccupation with level of cognitive status. Thank you very much for allowing me to provide the consultation on this patient. By: [id number] Gamaliel Demarco, PhD /nt
--- NOTE | ~2016-10-24 | PLAN ---
[facility] [place] [address] REHAB UNIT PLAN OF CARE Name: KRISTINE PACK Room #: 515-P ADM IN M.R.#: [id number] Admission: 10/24/16 Attend Phys: Stefano Wagner MD Discharge: Date of : 37 Report #: [id number] THIS REPORT FOR: //name// CC: Stefano Gonzales Gloriacrystal DATE OF SERVICE: 10/26/2016 The patient is seen back in followup. She is in no distress. Last recorded temperature is 98.6, pulse 70, respirations 18, blood pressure 83/50. The patient is alert, pleasant. Note that Dr. Lanza has made changes with reducing her torsemide dosing. He thought she appeared mildly volume completed. Functionally, she has been working in therapies with transfers, contact guard, gait up to 200 feet contact guard with a front-wheeled walker. In occupational therapy, lower body dressing is supervision, upper body dressing is supervision. In speech therapy, she is on a functional diet with regular thin. Cognition to be further evaluated. ASSESSMENT: 1. Medical complexity with generalized debilitation. 2. Encephalopathy and initial syncope due to arrhythmia. 3. Non-ST elevation myocardial infarction. 4. Takotsubo cardiomyopathy. 5. Cardiogenic shock. 6. Acute renal insufficiency superimposed on chronic kidney disease. PLAN: The overall plan of care is based on the preadmission screen, post-admission physician evaluation and information garnered from therapy assessments. 1. Estimated length of stay is probably at least 7-14 days pending progress. 2. Medical prognosis is reasonably good. 3. Anticipated interventions includes the interdisciplinary acute inpatient rehabilitation program. Cardiology is involved as well as Internal Medicine and Infectious Disease. Rehab nursing assisting regarding medication management, skin care prophylaxis, bowel and bladder issues and nursing education. The interdisciplinary rehabilitation team is working with her. 4. Anticipated functional outcomes would be for the patient to become modified independent with transfers, mobility and ADLs, so that she can hopefully return back to her prior living situation. 5. Discharge destination will be back to her home setting where she lives by herself. 6. Expected therapy by discipline includes PT, OT and speech 1 hour per day [address] [address] REHAB UNIT PLAN OF CARE Name: KRISTINE PACK Room #: 515-P ADM IN .R.#: [id number] Admission: 10/24/16 Attend Phys: Stefano Wagner MD Discharge: Date of : 37 Report #: [id number] each five days a week throughout the duration of the acute inpatient rehabilitation stay. <ELECTRONICALLY SIGNED> By: Stefano Wagner MD 10/31/16 1232 0933 1547 Stefano Wagner MD /PMT
[~2016-10-24 12:12] MED LIST: ADALAT CC30 MG PO; ALIGN4 MG PO; ASPIR 8181 M1 PO; CARVEDILOL12.5 MG PO; COZAAR 25 MG TA25 M1 PO; COZAAR 50 MG TA50 M2 PO; DUONEB 2.5-0.5 M3 ML INH; HYDROXYZINE HCL25 M1 PO; IBUPROFEN 800800 M1 PO; KLONOPIN0.5 MG PO; LASIX 20 MG TAB20 MG PO; LEVAQUIN 500 M500 M6 PO; LIPITOR20 MG PO; MAGNESIUM100 MG PO; MELATONIN5 M1 PO; NUVIGIL150 MG PO; PAXIL20 MG PO; POTASSIUM20 PO; PROTONIX40 M1 PO; PYRIDOXINE HCL50 MG PO; REQUIP5 MG PO; SYNTHROID88 MCG PO; TORSEMIDE20 MG PO; TYLENOL325 MG PO; VITAMIN B-12500 MCG PO; VITAMIN D2000 UNIT PO; ZANTAC300 MG PO
[2016-10-24 15:00] VITALS: BP 119/70
[2016-10-24 20:12] VITALS: BP 100/58
[2016-10-25 05:43] LABS: HEMATOCRIT 27.4 % (37.0-47.0); HEMOGLOBIN 9.3 gm/dL (12.0-15.0); MCH 30.4 pg (26.0-34.0); MCHC 33.8 g/dL (28.0-37.0); MCV 89.9 fL (80.0-100.0); RBC 3.05 mil/uL (4.20-5.00); RDW 13.8 % (10.5-14.5)
[2016-10-25 05:47] LABS: CALCIUM 8.2 mg/dL (8.5-10.1); CREATININE 1.7 mg/dL (0.6-1.0); POTASSIUM 3.4 mmol/L (3.5-5.1)
[2016-10-25 08:35] VITALS: BP 123/59
[2016-10-25 20:05] VITALS: BP 75/39
[2016-10-25 20:09] VITALS: BP 83/50
[2016-10-26 05:42] LABS: HEMATOCRIT 26.2 % (37.0-47.0); HEMOGLOBIN 8.8 gm/dL (12.0-15.0); MCH 30.2 pg (26.0-34.0); MCHC 33.6 g/dL (28.0-37.0); PLATELET COUNT 222 thou/uL (150-400); RBC 2.91 mil/uL (4.20-5.00); WBC 8.7 thou/uL (4.0-11.0)
[2016-10-26 06:00] LABS: ALBUMIN 2.7 g/dL (3.4-5.0); CALCIUM 8.4 mg/dL (8.5-10.1); TOTAL BILIRUBIN 0.4 mg/dL (<0.1-1.0); TOTAL PROTEIN 5.6 g/dL (6.4-8.2)
[2016-10-26 06:05] LABS: MANUAL DIFF YES
[2016-10-26 08:03] VITALS: BP 165/100
[2016-10-26 08:34] LABS: ABSOLUTE NEUTROPHILS 6.1 thou/uL (1.4-8.2); PLATELET ESTIMATE NORMAL; TOTAL CELL COUNT 100
[2016-10-26 09:12] VITALS: BP 104/50
[2016-10-26 19:32] VITALS: BP 91/67
[2016-10-27 06:06] LABS: HEMATOCRIT 24.9 % (37.0-47.0); HEMOGLOBIN 8.3 gm/dL (12.0-15.0); MCHC 33.5 g/dL (28.0-37.0); MCV 89.6 fL (80.0-100.0); RBC 2.77 mil/uL (4.20-5.00); RDW 14.3 % (10.5-14.5); WBC 7.5 thou/uL (4.0-11.0)
[2016-10-27 06:16] LABS: CALCIUM 8.2 mg/dL (8.5-10.1); CREATININE 1.9 mg/dL (0.6-1.0); POTASSIUM 3.8 mmol/L (3.5-5.1)
[2016-10-27 08:00] VITALS: BP 122/48
[2016-10-27 20:11] VITALS: BP 98/36
[2016-10-28 08:00] VITALS: BP 111/49
[2016-10-28 19:26] VITALS: BP 108/41
[2016-10-29 04:00] LABS: HEMATOCRIT 24.6 % (37.0-47.0); HEMOGLOBIN 8.3 gm/dL (12.0-15.0); MCH 30.5 pg (26.0-34.0); MCHC 33.8 g/dL (28.0-37.0); MCV 90.3 fL (80.0-100.0); RBC 2.73 mil/uL (4.20-5.00); RDW 13.9 % (10.5-14.5); WBC 6.4 thou/uL (4.0-11.0)
[2016-10-29 04:09] LABS: CALCIUM 8.3 mg/dL (8.5-10.1); CREATININE 1.8 mg/dL (0.6-1.0); POTASSIUM 3.7 mmol/L (3.5-5.1)
[2016-10-29 08:00] VITALS: BP 133/60
[2016-10-29 16:37] VITALS: BP 129/60
[2016-10-29 20:19] VITALS: BP 95/52
[2016-10-30 04:20] LABS: ABSOLUTE NEUTROPHILS 3.8 thou/uL (1.4-8.2); BASOPHILS 1.7 % (0.0-2.0); EOSINOPHILS 4.4 % (0.0-3.0); HEMATOCRIT 24.9 % (37.0-47.0); HEMOGLOBIN 8.4 gm/dL (12.0-15.0); LYMPHOCYTES 16.4 % (24.0-44.0); MCH 30.4 pg (26.0-34.0); MCHC 33.9 g/dL (28.0-37.0); MCV 89.8 fL (80.0-100.0); MONOCYTES 10.5 % (1.0-8.0); PLATELET COUNT 216 thou/uL (150-400); RBC 2.78 mil/uL (4.20-5.00); WBC 5.7 thou/uL (4.0-11.0)
[2016-10-30 04:30] LABS: CALCIUM 8.6 mg/dL (8.5-10.1); CREATININE 1.8 mg/dL (0.6-1.0); MAGNESIUM 2.3 mg/dL (1.8-2.4); POTASSIUM 3.7 mmol/L (3.5-5.1)
[2016-10-30 05:10] LABS: MANUAL DIFF NO
[2016-10-30 08:08] VITALS: BP 133/54
[2016-10-30] MEDS ORDERED: IRON325 PO (15:11)
[2016-10-30] MEDS ORDERED: TORSEMIDE20 MG PO (15:11)
[2016-10-30] MEDS ORDERED: MIRALAX17 GM PO (15:11)
[2016-10-30] MEDS ORDERED: PROAIR RESPICL90 MCG INH (15:11)
[2016-10-30] MEDS ORDERED: VOLTAREN GEL 1100 G2 TOP (15:11)
[2016-10-30] MEDS ORDERED: LIPITOR20 MG PO (15:11)
[2016-10-30] MEDS ORDERED: COLACE100 MG PO (15:11)
[2016-10-30] MEDS ORDERED: COZAAR 50 MG TA50 M2 PO (15:11)
[2016-10-30 16:32] VITALS: BP 133/54
[2016-10-30 19:52] VITALS: BP 112/50
[2016-10-31 11:54] VITALS: BP 133/54
== END 2016-10-31 12:57 | disposition home health service (06) | DRG 947 ==
PROVIDERS: Hospitalist; Nurse Practitioner; Physical Medicine & Rehabilitation
DX: R53.81 Other malaise (principal); G93.40 Encephalopathy, unspecified; I21.4 Non-ST elevation (NSTEMI) myocardial infarction; R57.0 Cardiogenic shock; I50.41 Acute combined systolic (congestive) and diastolic (congestive) heart failure; J96.01 Acute respiratory failure with hypoxia; J96.02 Acute respiratory failure with hypercapnia; I51.81 Takotsubo syndrome; N17.9 Acute kidney failure, unspecified; E87.2 Acidosis; I49.9 Cardiac arrhythmia, unspecified; G31.84 Mild cognitive impairment of uncertain or unknown etiology; Z66 Do not resuscitate; F43.22 Adjustment disorder with anxiety; N18.3 Chronic kidney disease, stage 3 (moderate); D64.9 Anemia, unspecified; Z88.1 Allergy status to other antibiotic agents; Z88.0 Allergy status to penicillin; Z88.8 Allergy status to other drugs, medicaments and biological substances; Z88.2 Allergy status to sulfonamides
CPT/HCPCS: 10112

== ENCOUNTER 2016-11-15 11:54 | Emergency (ER) | payer OTHER, MEDICARE ==
[~2016-11-15] VITALS: Ht 152.4 cm; Wt 50.8 kg
--- NOTE | ~2016-11-15 | EKG ---
[place] [address] [facility] [place] [address] ELECTROCARDIOGRAM REPORT Name: RAMONEKRISTINE Pike [id number] Admission: 11/15/16 Attend Phys: Discharge: 11/15/16 Date of : 37 Report #: [id number] THIS REPORT FOR: //name// [facility] ED Test Date: 2016-11-15 Test Time: 11:58:13 Pat Name: KRISTINE PACK Department: Room: Gender: F Laydown Machine Operator: [id number] : 1935 Requested By: Brittni Ascencio Order Number: [id number] MD: Lawrence Suero Measurements Intervals [place] Rate: 50 P: 58 MT: 147 QRS: -5 QRSD: 90 T: 163 QT: 548 QTc: 500 Interpretive Statements Sinus rhythm Probable LVH with secondary repol abnrm Abnormal T, probable ischemia, lateral leads Compared to ECG 10/23/2016 06:49:28 Atrial premature complex(es) no longer present Prolonged QT interval no longer present T-wave abnormality still present Possible ischemia still present Electronically Signed On 11-15-2016 22:38:22 CDT by Lawrence Suero [email or web address] <ELECTRONICALLY SIGNED> By: Lawrence Suero MD 11/15/16 2238 1158 1158 Lawrence Suero MD /EPI
[~2016-11-15 11:54] MED LIST changes: +COLACE100 MG PO; +IRON325 PO; +MIRALAX17 GM PO; +PROAIR RESPICL90 MCG INH; +VOLTAREN GEL 1100 G2 TOP
[2016-11-15 12:48] LABS: URINE BILIRUBIN NEGATIVE (Negative); URINE BLOOD NEGATIVE (Negative); URINE COLOR YELLOW; URINE GLUCOSE-RANDOM* NEGATIVE (Negative); URINE KETONES NEGATIVE (Negative); URINE NITRITE NEGATIVE (Negative); URINE PROTEIN (DIPSTICK) NEGATIVE (Negative); URINE UROBILINOGEN 0.2 E.U./dl (0.2-1.0)
[2016-11-15 13:15] LABS: HEMATOCRIT 29.2 % (37.0-47.0); HEMOGLOBIN 9.7 gm/dL (12.0-15.0); MCH 30.3 pg (26.0-34.0); MCHC 33.2 g/dL (28.0-37.0); MCV 91.4 fL (80.0-100.0); PLATELET COUNT 156 thou/uL (150-400); RBC 3.19 mil/uL (4.20-5.00); RDW 15.2 % (10.5-14.5); WBC 4.9 thou/uL (4.0-11.0)
[2016-11-15 13:17] LABS: MANUAL DIFF YES
[2016-11-15 13:24] LABS: ANION GAP 6 mmol/L (7-16); BUN 46 mg/dL (7-18); CALCIUM 9.4 mg/dL (8.5-10.1); CHLORIDE 103 mmol/L (98-107); CO2 31 mmol/L (21-32); CREATININE 1.6 mg/dL (0.6-1.0); GLUCOSE 91 mg/dL (74-106); POTASSIUM 4.1 mmol/L (3.5-5.1); SODIUM 140 mmol/L (136-145)
[2016-11-15 13:33] LABS: TROPONIN-I < 0.04 ng/mL (<0.04-0.07)
[2016-11-15 13:40] LABS: ABSOLUTE NEUTROPHILS 3.2 thou/uL (1.4-8.2); ANISOCYTOSIS SLIGHT; PLATELET ESTIMATE NORMAL; TOTAL CELL COUNT 100
== END 2016-11-15 14:33 | disposition home or self-care (01) ==
LOC: ER 11:54
PROVIDERS: Emergency Medicine
DX: R53.1 Weakness (principal); I12.0 Hypertensive chronic kidney disease with stage 5 chronic kidney disease or end stage renal disease; N18.6 End stage renal disease; E78.5 Hyperlipidemia, unspecified; F41.9 Anxiety disorder, unspecified; Z88.0 Allergy status to penicillin; Z88.2 Allergy status to sulfonamides

== ENCOUNTER 2017-11-20 18:32 | Inpatient (IN) | payer OTHER, MEDICARE ==
[~2017-11-20] VITALS: Ht 152.4 cm; Wt 42.8 kg
--- NOTE | ~2017-11-20 | HC ---
[facility] [place] [address] CONSULTATION Name: KRISTINE PACK Room #: 460-P [facility] IN M.R.#: [id number] Admission: 11/20/17 Attend Phys: Glendy Guan Discharge: 11/25/17 Date of : 37 Report #: [id number] THIS REPORT FOR: //name// CC: Adama Rod [facility] physician/PCP REASON FOR PRESENTATION: She has high blood pressure. HISTORY OF PRESENT ILLNESS: An 82-year-old with extensive past medical history including high blood pressure and postural drop, for which she was evaluated in our clinic back in 2014. I actually saw her initially and discharged her from my clinic as she did not have any issues. She is not clear on her medications. She carries a diagnosis of chronic kidney disease with a baseline creatinine of around 1.5. She had coronary artery disease and was admitted as she stated to [facility] for an DE. There seems to be major issues with her medications based on the clinic notes. She is not clear on any of her medication, polypharmacy also seems to be an issue. She tells me that her blood pressure has been in the 170-200. She was admitted for further evaluation and management. I am being consulted to manage her related issues. PAST MEDICAL HISTORY: 1. Hypothyroidism. 2. Depression. 3. Anxiety. 4. Hyperlipidemia. 5. Narcolepsy. 6. Postural hypotension requiring Florinef. 7. TIA. 8. Obstructive sleep apnea. PAST SURGICAL HISTORY: Cervical neck surgery. ALLERGIES: PENICILLIN, SULFA AND ERYTHROMYCIN. FAMILY HISTORY: Hypertension. SOCIAL HISTORY: She resides in [place]. MEDICATIONS: Listed amongst her admission medications: 1. Carvedilol. 2. Losartan. 3. Aspirin. 4. Torsemide. 5. Levothyroxine. Most recent visit with ____ in my clinic revealed that she should be on the following: [facility] [address] [place] [address] CONSULTATION Name: KRISTINE PACK Room #: 460-P [facility] IN [facility].#: [id number] Admission: 11/20/17 Attend Phys: Glendy Guan Discharge: 11/25/17 Date of : 37 Report #: [id number] 1. Furosemide. 2. Carvedilol. 3. Clonidine . Rest of the medications were discontinued. REVIEW OF SYSTEMS: GENERAL: No fever or chills. CARDIOVASCULAR: No chest pain or palpitation. PULMONARY: No cough or hemoptysis. GASTROINTESTINAL: No nausea or vomiting. GENITOURINARY: No frequency, no urgency. MUSCULOSKELETAL: Back and neck pain. PHYSICAL EXAMINATION: GENERAL: Alert, oriented, in no apparent distress. VITAL SIGNS: Blood pressure 144/70. On presentation, her blood pressure was 203/87. HEAD AND NECK: No jugular venous distention, no bruit, no thyromegaly. CHEST: Clear to auscultation bilaterally. CARDIOVASCULAR: Regular with no rub detected. ABDOMEN: Soft, nontender, with no hepatosplenomegaly. LOWER EXTREMITIES: No edema. LABORATORY DATA: Reviewed. Potassium is 3.3, creatinine is 1.7. TSH was elevated. Renal ultrasound from yesterday revealed right renal exophytic cysts. ASSESSMENT, IMPRESSION AND PLAN: 1. Chronic kidney disease. 2. Ongoing issues with blood pressure. 3. Hypokalemia. Blood pressure had been an issue since 2014, I suspect the major medications issues. Her blood pressure seems to be under well control now. With the drop in her blood pressure, it is expected that she will have some rise in her creatinine. [place] blood pressure medication should be hydrochlorothiazide and an angiotensin converting enzyme inhibitor or an angiotensin receptor sonia. She is ideally on losartan, furosemide, carvedilol at home. I see that the primary care physician has added Norvasc, metoprolol, hydralazine. I will defer further management of her medications to the primary team. <ELECTRONICALLY SIGNED> By: Sarah Servin MD 11/25/17 1553 0755 1008 Sarah Servin MD /nt
--- NOTE | ~2017-11-20 | H ---
[facility] [place] [address] HISTORY AND PHYSICAL Name: KRISTINE PACK Room #: 460-P ADM IN M.R.#: [id number] Admission: 11/20/17 Attend Phys: Glendy Guan Discharge: Date of : 37 Report #: [id number] THIS REPORT FOR: //name// CC: Adama Rod [facility] physician/PCP DATE OF SERVICE: 11/21/2017 CHIEF COMPLAINT: High blood pressure. HISTORY OF PRESENT ILLNESS: The patient is an 82-year-old female admitted to the Emergency Room with high blood pressure. She said for several weeks, her blood pressure has been high with the systolic ranging 170-200. She was directed to ER yesterday night. There have been no reports of chest pain, shortness of breath, palpitations, numbness, tingling or other neurologic symptoms. PAST MEDICAL HISTORY: Hypertension, chronic kidney disease, stage 3; iron deficiency anemia, dyslipidemia, cognitive deficit. PAST SURGICAL HISTORY: Unknown. FAMILY HISTORY: Noncontributory. SOCIAL HISTORY: No chronic alcohol or tobacco use. ALLERGIES: ERYTHROMYCIN, PENICILLIN, SERTRALINE, SULFA. MEDICATIONS: Vitamin D, Tylenol, Requip, pyridoxine, Protonix, Paxil, Levoxyl, Klonopin, aspirin, potassium, Coreg, Demadex, losartan, Lipitor, MiraLax, diclofenac gel, iron, clonidine. REVIEW OF SYSTEMS: She denies headache, chest pain, shortness of breath, abdominal pain, nausea, vomiting, diarrhea, constipation, dysuria or syncope. OBJECTIVE: VITAL SIGNS: Temperature 36.4, pulse 54, respirations 16, blood pressure 198/87, O2 sat 97% on room air. GENERAL: She is awake and alert, in no distress. HEAD AND NECK: Unremarkable. LUNGS: Clear. HEART: Regular. ABDOMEN: Soft, normoactive bowel sounds. EXTREMITIES: No edema. NEUROLOGIC: Cranial nerves intact. Speech is fluent. Motor strength 4/5 and equal bilaterally throughout. [address] [address] HISTORY AND PHYSICAL Name: KRISTINE PACK Room #: [address] [place] [address] [place] ..#: [id number] Admission: 11/20/17 Attend Phys: Glendy Guan Discharge: Date of : 37 Report #: [id number] LABORATORY DATA: Troponin negative. Creatinine was 1.3. ASSESSMENT: 1. Uncontrolled hypertension. 2. Chronic kidney disease, stage 3. PLAN: I will adjust her antihypertensive regimen while in hospital to try to find a regimen to control her symptoms. She has no neurologic symptoms currently. Creatinine appears at baseline per outpatient labs. <ELECTRONICALLY SIGNED> By: Stefano Bauman MD 11/22/17 1052 1118 1200 Stefano Bauman MD /nt
--- NOTE | ~2017-11-20 | EKG ---
[address] [place] [address] ELECTROCARDIOGRAM REPORT Name: KRISTINE PACK Room #: 460-P ADM IN M.R.#: [id number] Admission: 11/20/17 Attend Phys: Glendy Guan Discharge: Date of : 37 Report #: [id number] THIS REPORT FOR: //name// [facility] ED Test Date: 2017-11-20 Test Time: 19:29:44 Pat Name: KRISTINE PACK Department: Room: [facility] Gender: F Erp Manager: YAHAIRA : 1935 Requested By: Varun Hernández Order Number: [id number] MD: Kevin Lanza Measurements Intervals [place] Rate: 55 P: 71 NC: 143 QRS: 17 QRSD: 88 T: 45 QT: 485 QTc: 464 Interpretive Statements Sinus bradycardia Probable left ventricular hypertrophy Baseline wander in lead(s) V5 Compared to ECG 12/13/2016 07:01:52 Anterolateral T wave inversion no longer present Electronically Signed On 11-21-2017 8:45:17 CDT by Kevin Lanza [email or web address] <ELECTRONICALLY SIGNED> By: Kevin Lanza MD, [facility] 11/21/17 0845 28 28 Kevin Lanza MD, [facility] /EPI
--- NOTE | ~2017-11-20 | 2DMMODE ---
[facility] [address] [employer] [place] [address] 2 D/M-MODE ECHOCARDIOGRAM Name: KRISTINE PACK Room #: 460-P ADM IN ..#: [id number] Admission: 11/20/17 Attend Phys: Adama Mendiola Discharge: Date of : 37 Date of Service: 11/25/17 0833 Report #: [id number] THIS REPORT FOR: //name// APPROVED REPORT Study performed: 11/23/2017 09:32:55 EXAM: Comprehensive 2D, Doppler, and color-flow Echocardiogram Patient Location: Bedside Room #: 460 Status: on-call BSA: 1.47 HR: 61 bpm Rhythm: NSR Other Information Study Quality: Good Risk Factors: Cardiac Risk Factors: Hyperlipidemia Indications Uncontrolled Hypertension 2D Dimensions IVSd: 12.71 (7-11mm) LVOT Diam: 18.00 (18-24mm) LVDd: 39.41 mm PWd: 12.61 (7-11mm) Ascending Ao: 29.73 (22-36mm) LVDs: 27.13 (25-40mm) Left Atrium: 45.69 (27-40mm) Aortic Root: 30.02 mm LV Single Plane 4CH: 65.53 % LV Single Plane 2CH: 68.03 % Biplane EF: 66.9 % Volumes Left Atrial Volume (Systole) Single Plane 4CH: 72.13 mL Single Plane 2CH: 46.22 mL LA ESV Index: 43.00 mL/m2 Aortic Valve AoV Peak Williams.: 1.23 m/s AO Peak Gr.: 6.36 mmHg LVOT Max P.74 mmHg LVOT Max V: 1.09 m/s [facility] [address] [place] [address] 2 D/M-MODE ECHOCARDIOGRAM Name: RAMONEKRISTINE Glendy Room #: 460-[facility] IN ..#: [id number] Admission: 11/20/17 Attend Phys: Adama Mendiola Discharge: Date of : 37 Date of Service: 11/25/17 0833 Report #: [id number] ARMANDO Vmax: 2.31 cm2 Mitral Valve E/A Ratio: 0.5 MV Decel. Time: 317.04 ms MV E Max Williams.: 0.63 m/s MV A Williams.: 1.39 m/s MV PHT: 91.94 ms IVRT: 73.82 ms TDI E/Lateral E': 21.00 E/Medial E': 21.00 Medial E' Williams.: 0.03 m/s Lateral E' Williams.: 0.03 m/s Pulmonary Valve PV Peak Williams.: 1.25 m/s PV Peak Gr.: 6.25 mmHg Pulmonary Vein P Vein S: 0.55 m/s P Vein A: 0.31 m/s P Vein D: 0.35 m/s P Vein A Dur.: 124.6 msec P Vein S/D Ratio: 1.57 Tricuspid Valve TR Peak Williams.: 2.60 m/s RAP Estimate: 7.00 mmHg TR Peak Gr.: 27.00 mmHg PA Pressure: 34.00 mmHg Left Ventricle The left ventricle is normal size. There is normal LV segmental wall motion. Mild concentric left ventricular hypertrophy. Left ventricular systolic function is normal. The left ventricular ejection fraction is within the normal range. LVEF is 65%. Grade I - abnormal relaxation pattern. Right Ventricle The right ventricle is normal size. The right ventricular systolic function is normal. Atria Left atrium is moderately dilated. The right atrium size is normal. Aortic Valve The aortic valve is mildly sclerotic. No aortic regurgitation is present. There is no [place] [address] 2 D/M-MODE ECHOCARDIOGRAM Name: KRISTINE PACK Room #: 460-P [facility] IN [facility]#: [id number] Admission: 11/20/17 Attend Phys: Adama Mendiola Discharge: Date of : 37 Date of Service: 11/25/17 0833 Report #: [id number] Mitral Valve Moderate mitral annular calcification. Mild mitral regurgitation. No evidence of mitral valve stenosis. Tricuspid Valve The tricuspid valve is normal in structure. Mild tricuspid regurgitation. Pulmonary artery pressure is 35 mmHg. Pulmonic Valve The pulmonary valve is normal in structure. There is no pulmonic valvular regurgitation. Great Vessels The aortic root is normal in size. IVC is normal in size and collapses >50% with inspiration. Pericardium There is no pericardial effusion. <Conclusion> Left ventricular systolic function is normal. There is normal LV segmental wall motion. LVEF is 65%. Mild diastolic dysfunction Left atrium is moderately dilated. The aortic valve is mildly sclerotic. No aortic regurgitation or stenosis. Moderate mitral annular calcification. Mild mitral regurgitation. Mild tricuspid regurgitation. Pulmonary artery pressure is 35 mmHg. There is no pericardial effusion. <ELECTRONICALLY SIGNED> By: Kevin Lanza MD, FACC 11/25/1733 2 2 Kevin Lanza MD, FACC /INF
[2017-11-20 18:37] VITALS: BP 216/63
[2017-11-20 20:28] LABS: ANION GAP 5 mmol/L (7-16); BUN 33 mg/dL (7-18); CALCIUM 10.4 mg/dL (8.5-10.1); CHLORIDE 101 mmol/L (98-107); CO2 29 mmol/L (21-32); CREATININE 1.3 mg/dL (0.6-1.0); GLUCOSE 99 mg/dL (74-106); POTASSIUM 4.2 mmol/L (3.5-5.1); SODIUM 135 mmol/L (136-145)
[2017-11-20 20:38] LABS: TROPONIN-I <0.06 ng/mL (<0.06)
[2017-11-20 20:52] LABS: URINE BILIRUBIN NEGATIVE (Negative); URINE BLOOD NEGATIVE (Negative); URINE CLARITY CLEAR; URINE COLOR YELLOW; URINE GLUCOSE-RANDOM* NEGATIVE (Negative); URINE KETONES TRACE (Negative); URINE LEUKOCYTES-REFLEX NEGATIVE (Negative); URINE NITRITE-REFLEX NEGATIVE (Negative); URINE PROTEIN (DIPSTICK) NEGATIVE (Negative); URINE SPECIFIC GRAVITY 1.015 (1.005-1.035); URINE UROBILINOGEN 0.2 E.U./dl (0.2-1.0)
[2017-11-20 23:00] VITALS: BP 204/79
[2017-11-20 23:08] VITALS: BP 196/80
[2017-11-20 23:36] VITALS: BP 218/68
[2017-11-21 01:30] VITALS: BP 148/60
[2017-11-21 05:07] VITALS: BP 190/72
[2017-11-21 07:16] VITALS: BP 198/87
[2017-11-21 15:45] VITALS: BP 176/74
[2017-11-21 19:04] VITALS: BP 217/81
[2017-11-21 19:05] VITALS: BP 221/81
[2017-11-22 00:14] VITALS: BP 170/73
[2017-11-22 05:39] LABS: CALCIUM 8.8 mg/dL (8.5-10.1); CREATININE 1.2 mg/dL (0.6-1.0); POTASSIUM 3.9 mmol/L (3.5-5.1)
[2017-11-22 07:27] VITALS: BP 220/89
[2017-11-22 16:16] VITALS: BP 184/83
[2017-11-22 22:32] VITALS: BP 169/90
[2017-11-22 22:39] VITALS: BP 183/101
[2017-11-22 22:44] VITALS: BP 182/110
[2017-11-23 07:07] VITALS: BP 203/95
[2017-11-23 07:22] VITALS: BP 203/87
[2017-11-23 09:00] LABS: URINE BILIRUBIN NEGATIVE (Negative); URINE BLOOD NEGATIVE (Negative); URINE CLARITY CLEAR; URINE COLOR YELLOW; URINE GLUCOSE-RANDOM* NEGATIVE (Negative); URINE KETONES NEGATIVE (Negative); URINE LEUKOCYTES NEGATIVE (Negative); URINE NITRITE NEGATIVE (Negative); URINE PROTEIN (DIPSTICK) NEGATIVE (Negative); URINE UROBILINOGEN 0.2 E.U./dl (0.2-1.0)
[2017-11-23 10:55] LABS: HEMATOCRIT 46.7 % (37.0-47.0); HEMOGLOBIN 15.9 gm/dL (12.0-15.0); MCH 30.3 pg (26.0-34.0); MCV 89.2 fL (80.0-100.0); RBC 5.23 mil/uL (4.20-5.00); RDW 14.3 % (10.5-14.5); WBC 9.3 thou/uL (4.0-11.0)
[2017-11-23 11:15] LABS: CALCIUM 9.4 mg/dL (8.5-10.1); CREATININE 1.7 mg/dL (0.6-1.0); POTASSIUM 3.3 mmol/L (3.5-5.1); TOTAL BILIRUBIN 0.6 mg/dL (<0.1-1.0); TOTAL PROTEIN 8.3 g/dL (6.4-8.2)
[2017-11-23 13:30] VITALS: BP 141/83; BP 190/82; BP 191/108
[2017-11-23 16:17] VITALS: BP 168/85
[2017-11-23 19:36] VITALS: BP 152/94
[2017-11-23 22:47] VITALS: BP 142/82
[2017-11-24] VITALS (7 sets, daily range): BP systolic 144–190; BP diastolic 70–102
[2017-11-25 00:03] VITALS: BP 168/80
[2017-11-25 05:43] LABS: ALBUMIN 3.5 g/dL (3.4-5.0); CALCIUM 9.2 mg/dL (8.5-10.1); CREATININE 1.3 mg/dL (0.6-1.0); PHOSPHORUS 3.3 mg/dL (2.5-4.9); POTASSIUM 3.3 mmol/L (3.5-5.1)
[2017-11-25 07:32] VITALS: BP 170/85
[2017-11-25] MEDS ORDERED: AMLODIPINE BESY10 MG PO (13:58)
[2017-11-25] MEDS ORDERED: LISINOPRIL40 MG PO (13:58)
[2017-11-25] MEDS ORDERED: SPIRONOLACTONE25 M1 PO (13:58)
[2017-11-25] MEDS ORDERED: LOPRESSOR50 PO (13:58)
[2017-11-25] MEDS ORDERED: PROZAC 20 MG20 MG PO (13:59)
[2017-11-25] MEDS ORDERED: HYDROCHLOROTHIA25 M1 PO (13:59)
[2017-11-25 14:00] VITALS: BP 163/83
[2017-11-25 14:02] VITALS: BP 165/106
[2017-11-25 14:05] VITALS: BP 172/74
[2017-11-25 14:14] VITALS: BP 170/85
== END 2017-11-25 15:38 | disposition home health service (06) | DRG 684 ==
LOC: ER 18:32 → EROBS 22:37 → 4W 22:37 → ENTRNSPT 11-25 14:58 → EDTRNSPTSTS 11-25 15:03 → 4W 11-25 15:38
PROVIDERS: Emergency Medicine; Hospitalist; Internal Medicine Geriatric Medicine
DX: I12.0 Hypertensive chronic kidney disease with stage 5 chronic kidney disease or end stage renal disease (principal); E78.5 Hyperlipidemia, unspecified; G25.81 Restless legs syndrome; E03.9 Hypothyroidism, unspecified; F32.9 Major depressive disorder, single episode, unspecified; G47.33 Obstructive sleep apnea (adult) (pediatric); E87.6 Hypokalemia; F41.9 Anxiety disorder, unspecified; Z79.82 Long term (current) use of aspirin; Z79.899 Other long term (current) drug therapy; Z86.73 Personal history of transient ischemic attack (TIA), and cerebral infarction without residual deficits; Z88.0 Allergy status to penicillin; Z88.1 Allergy status to other antibiotic agents; Z88.2 Allergy status to sulfonamides; Z88.8 Allergy status to other drugs, medicaments and biological substances; Z82.49 Family history of ischemic heart disease and other diseases of the circulatory system; Z28.21 Immunization not carried out because of patient refusal; N18.3 Chronic kidney disease, stage 3 (moderate)
CPT/HCPCS: 10045